=== PATIENT | female | born 1990 | race American Indian/Alaskan Native ===

== ENCOUNTER 2016-12-31 09:07 | Inpatient (IN) | payer MEDICAID ==
[2016-12-31] MEDS ORDERED: BRETHINE IVP PRN ×2 (09:49→11:14)
[2016-12-31] MEDS ORDERED: MINERAL OIL PO PRN ×2 (09:49→11:14)
[2016-12-31] MEDS ORDERED: BRETHINE SUB-Q PRN ×2 (09:49→11:14)
[2016-12-31] MEDS ORDERED: ePHEDrine SULFATE IV PRN ×2 (09:49→11:14)
[2016-12-31] MEDS ORDERED: PITOCin/NS 20 UNIT/1000ML DRIP 20 UNIT/1,000 ML BAG IV SCH (10:00)
[2016-12-31] MEDS ORDERED: PITOCin/NS 30 UNIT/500ML 30 UNIT/500 ML BAG IV SCH (10:00)
[2016-12-31 10:19] LABS: Hematocrit 29.6 % (30.3-42.9); Hemoglobin 9.1 gm/dl (10.1-14.3); Mean Corpuscular HGB Conc 31 % (30-34); Platelet Count 135 K/mm3 (140-440); Red Blood Count 4.25 M/mm3 (3.65-5.03); Red Cell Distribution Width 18.1 % (13.2-15.2); White Blood Count 16.3 K/mm3 (4.5-11.0)
[2016-12-31 10:20] LABS: Mean Corpuscular Hemoglobin 21 pg (28-32); Mean Corpuscular Volume 70 fl (79-97)
[2016-12-31] MEDS: LACTATED RINGERS 1,000 ML IV SCH ×3 (10:37→13:13)
[2016-12-31 10:59] LABS: Basophils % (Manual) 0 % (0.0-1.8); Blastocytes % (Manual) 0 %
[2016-12-31 11:00] LABS: Hypochromasia 2+
[2016-12-31 11:01] LABS: Anisocytosis 1+; Diff Status Complete; Large Platelets Few; Microcytosis 1+; Platelet Estimate Cons; Tear Drop Cells 1+
[2016-12-31 11:02] LABS: Polychromasia Few
--- NOTE | 2016-12-31 11:13 | History and Physical Report ---
History of Present Illness Date of examination: 12/31/16 Date of admission: 12/31/16 09:07 Chief complaint: Painful contractions with heavy VB History of present illness: 6-year-old 101 at 40 weeks presents with above complaints and issues, she is a drop-in patient with care at [facility]. Her history patient with onset of contractions and vaginal bleeding today and decided to come into the hospital. Per patient, her care has been unremarkable. On LDRP, bedside ultrasound shows fundal placenta with no sign of abruption. Initially 3 cm she is now 4 cm per RN exam. 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 denies: IV drug use - Obstetrical History : 3 Para: 2 Hx # Term Pregnancies: 1 Number of Pregnancies: 1 Number of Living Children: 1 Medications and Allergies Allergies Allergy/AdvReac Type Severity Reaction Status Date / Time No Known Allergies Allergy Unverified 12/31/16 09:42 Active Meds: Active Medications Lactated Ringer's (Lactated Ringers) 1,000 mls @ 125 mls/hr IV DIRECT REX Last Admin: 12/31/16 10:42 Dose: 125 mls/hr Oxytocin/Sodium Chloride (Pitocin/Ns 20 Unit/1000ml Drip) 20 unit in 1,000 mls @ 125 mls/hr IV DIRECT REX Oxytocin/Sodium Chloride (Pitocin/Ns 30 Unit/500ml) 30 unit in 500 mls @ 1 mls/ hr IV TITR REX; 1 MILLIUNITS/MIN PRN Reason: Protocol Mineral Oil (Mineral Oil) 30 ml PO QHS PRN PRN Reason: Constipation Review of Systems Constitutional: no fever, no chills, no sweats Eyes: no blurred vision, no diplopia, no pain Cardiovascular: no chest pain, no palpitations, no syncope, no lightheadedness, no shortness of breath, no dyspnea on exertion, no high blood pressure, no decreased exercise tolerance Respiratory: no hemoptysis, no shortness of breath, no dyspnea on exertion Gastrointestinal: abdominal pain, no nausea, no vomiting Genitourinary: vaginal bleeding, no vaginal discharge, no leakage of fluid - Vital Signs Vital signs: Vital Signs Pulse BP 117 H 118/76 12/31/16 09:47 12/31/16 09:47 Temp Pulse Resp BP Pulse Ox 117 H 118/76 12/31/16 09:47 12/31/16 09:47 - Physical Exam Abdomen: Positive: normal appearance, soft. Negative: distention, tenderness, guarding, rigidity Genitourinary (Female): Positive: normal external genitalia Uterus: Positive: enlarged (EFW ~ 3600). Negative: tender Adnexa: both: normal Extremities: Positive: normal - Obstetrical FHR: category 1 Cervical Dilatation: 4 Results Result Diagrams: 12/31/16 09:38 Abnormal lab results 12/31/16 Range/Units 09:38 WBC 16.3 H (4.5-11.0) K/mm3 Hgb 9.1 L (10.1-14.3) gm/dl Hct 29.6 L (30.3-42.9) % MCV 70 L (79-97) fl MCH 21 L (28-32) pg RDW 18.1 H (13.2-15.2) % Plt Count 135 L (140-440) K/mm3 Monocytes % (Manual) 12.0 H (0.0-7.3) % Nucleated RBC % 1.0 H (0.0-0.9) % Seg Neutrophils # Man 10.9 H (1.8-7.7) K/mm3 Monocytes # (Manual) 2.0 H (0.0-0.8) K/mm3 All other labs normal. Assessment and Plan A: 26 y/o at 40 wks in active labour -Cat 1 tracing P: -Admit -Routine labs and Coags -NPO -Expectant Mgt -Anticipate - Patient Problems (1) 40 weeks gestation of Current Visit: Yes Status: Acute (2) Active labor at term Current Visit: Yes Status: Acute
[2016-12-31] MEDS ORDERED: POLYCILLIN/NS 2 GM/100 ML 2 GM/100 ML BAG IV ONE (11:14)
[2016-12-31 11:15] LABS: HIV-1 Antigen p24 Non React (Non React); HIVR-1/2 Ab Non React (Non React)
[2016-12-31] MEDS ORDERED: NACL 0.9% 500 ML 500 ML IV NR (11:18)
[2016-12-31] MEDS ORDERED: PITOCin/NS 20 UNIT/1000ML DRIP 20 UNITS/1,000 ML BAG IV SCH (12:00)
[2016-12-31] MEDS ORDERED: LACTATED RINGERS 1,000 ML IV SCH (12:00)
[2016-12-31] MEDS ORDERED: NARCAN 2 MG/2 ML IV PRN (12:19)
--- NOTE | 2016-12-31 12:19 | Anesthesia Consultation ---
Anesthesia Consult and Med Hx Date of service: 12/31/16 - Airway Anesthetic Teeth Evaluation: Good ROM Head & Neck: Adequate Mental/Hyoid Distance: Adequate Mallampati Class: Class II Intubation Access Assessment: Probably Good - Pre-Operative Health Status ASA Pre-Surgery Classification: ASA2 Proposed Anesthetic Plan: Epidural, Spinal - Pulmonary Hx Asthma: No COPD: No Hx Pneumonia: No - Cardiovascular System Hx Hypertension: No - Central Nervous System Hx Seizures: No Hx Psychiatric Problems: No - Endocrine Hx Renal Disease: No Hx End Stage Renal Disease: No Hx Hypothyroidism: No Hx Hyperthyroidism: No - Hematic Hx Anemia: No Hx Sickle Cell Disease: No - Other Systems Hx Alcohol Use: No
[2016-12-31] MEDS ORDERED: fentaNYL-BUPIV 2 MCG/ML-0.125% 200 MCG/100 ML BAG EPIDURAL SCH (13:00)
[2016-12-31 13:22] LABS: Hematocrit 27.3 % (30.3-42.9); Hemoglobin 8.4 gm/dl (10.1-14.3); Mean Corpuscular HGB Conc 31 % (30-34); Platelet Count 108 K/mm3 (140-440); Red Cell Distribution Width 17.9 % (13.2-15.2); White Blood Count 15.4 K/mm3 (4.5-11.0)
[2016-12-31 13:23] LABS: Mean Corpuscular Hemoglobin 22 pg (28-32); Mean Corpuscular Volume 70 fl (79-97)
[2016-12-31 13:35] LABS: INR 1.05 (0.87-1.13)
[2016-12-31] MEDS ORDERED: POLYCILLIN/NS 1 GM/50 ML 1 GM/50 ML BAG IV SCH (14:00)
--- NOTE | 2016-12-31 14:13 | Progress Note ---
Assessment and Plan - Patient Problems (1) 40 weeks gestation of Current Visit: Yes Status: Acute (2) Active labor at term Current Visit: Yes Status: Acute Subjective - Subjective Date of service: 12/31/16 Patient reports: new complaints, vaginal bleeding (Mild show), movement normal, contractions, no loss of fluid Objective - Vital Signs Vital Signs: Vital Signs - 12hr 12/31/16 12/31/16 12/31/16 09:47 12:14 13:15 Pulse Rate 117 H 127 H Respiratory 18 Rate Blood Pressure 118/76 124/69 124/69 - Exam FHR: category 1 Cervical Dilatation: 8.5 station: -1 - Labs Labs: Abnormal Labs 12/31/16 12/31/16 12/31/16 09:38 09:38 13:07 WBC 16.3 H 15.4 H Hgb 9.1 L 8.4 L Hct 29.6 L 27.3 L MCV 70 L 70 L MCH 21 L 22 L RDW 18.1 H 17.9 H Plt Count 135 L 108 L Monocytes % (Manual) 12.0 H Nucleated RBC % 1.0 H Seg Neutrophils # Man 10.9 H Monocytes # (Manual) 2.0 H Fibrinogen Crossmatch See Detail 12/31/16 13:07 WBC Hgb Hct MCV MCH RDW Plt Count Monocytes % (Manual) Nucleated RBC % Seg Neutrophils # Man Monocytes # (Manual) Fibrinogen 762 H Crossmatch Laboratory Results - last 24 hr 12/31/16 12/31/16 12/31/16 09:38 09:38 09:38 WBC 16.3 H RBC 4.25 Hgb 9.1 L Hct 29.6 L MCV 70 L MCH 21 L MCHC 31 RDW 18.1 H Plt Count 135 L Add Manual Diff Complete Total Counted 100 Seg Neuts % (Manual) 67.0 Band Neutrophils % 5.0 Lymphocytes % (Manual) 15.0 Reactive Lymphs % (Man) 0 Monocytes % (Manual) 12.0 H Eosinophils % (Manual) 1.0 Basophils % (Manual) 0 Metamyelocytes % 0 Myelocytes % 0 Promyelocytes % 0 Blast Cells % 0 Nucleated RBC % 1.0 H Seg Neutrophils # Man 10.9 H Band Neutrophils # 0.8 Lymphocytes # (Manual) 2.4 Abs React Lymphs (Man) 0.0 Monocytes # (Manual) 2.0 H Eosinophils # (Manual) 0.2 Basophils # (Manual) 0.0 Metamyelocytes # 0.0 Myelocytes # 0.0 Promyelocytes # 0.0 Blast Cells # 0.0 WBC Morphology Not Reportable Hypersegmented Neuts Not Reportable Hyposegmented Neuts Not Reportable Hypogranular Neuts Not Reportable Smudge Cells Not Reportable Toxic Granulation Not Reportable Toxic Vacuolation Not Reportable Dohle Bodies Not Reportable Pelger-Huet Anomaly Not Reportable Jenifer Rods Not Reportable Platelet Estimate Cons Clumped Platelets Not Reportable Plt Clumps, EDTA Not Reportable Large Platelets Few Giant Platelets Not Reportable Platelet Satelliting Not Reportable Plt Morphology Comment Not Reportable RBC Morphology Not Reportable Dimorphic RBCs Not Reportable Polychromasia Few Hypochromasia 2+ Poikilocytosis Not Reportable Anisocytosis 1+ Microcytosis 1+ Macrocytosis Not Reportable Spherocytes Not Reportable Pappenheimer Bodies Not Reportable Sickle Cells Not Reportable Target Cells Not Reportable Tear Drop Cells 1+ Ovalocytes Not Reportable Helmet Cells Not Reportable Pearson-Kulm Bodies Not Reportable [place] Rings Not Reportable Peter Cells Not Reportable Bite Cells Not Reportable Crenated Cell Not Reportable Elliptocytes Not Reportable Acanthocytes (Spur) Not Reportable Rouleaux Not Reportable Hemoglobin C Crystals Not Reportable Schistocytes Not Reportable Malaria parasites Not Reportable [place] Bodies Not Reportable Hem Pathologist Commnt No PT INR APTT Fibrinogen RPR Hep Bs Antigen Non-reactive HIV 1&2 Antibody Rapid Non react HIV P24 Antigen Non react Rubella IgG Antibody Immune Blood Type Antibody Screen Crossmatch 12/31/16 12/31/16 12/31/16 09:38 09:38 13:07 WBC 15.4 H RBC 3.90 Hgb 8.4 L Hct 27.3 L MCV 70 L MCH 22 L MCHC 31 RDW 17.9 H Plt Count 108 L Add Manual Diff Total Counted Seg Neuts % (Manual) Band Neutrophils % Lymphocytes % (Manual) Reactive Lymphs % (Man) Monocytes % (Manual) Eosinophils % (Manual) Basophils % (Manual) Metamyelocytes % Myelocytes % Promyelocytes % Blast Cells % Nucleated RBC % Seg Neutrophils # Man Band Neutrophils # Lymphocytes # (Manual) Abs React Lymphs (Man) Monocytes # (Manual) Eosinophils # (Manual) Basophils # (Manual) Metamyelocytes # Myelocytes # Promyelocytes # Blast Cells # WBC Morphology Hypersegmented Neuts Hyposegmented Neuts Hypogranular Neuts Smudge Cells Toxic Granulation Toxic Vacuolation Dohle Bodies Pelger-Huet Anomaly Jenifer Rods Platelet Estimate Clumped Platelets Plt Clumps, EDTA Large Platelets Giant Platelets Platelet Satelliting Plt Morphology Comment RBC Morphology Dimorphic RBCs Polychromasia Hypochromasia Poikilocytosis Anisocytosis Microcytosis Macrocytosis Spherocytes Pappenheimer Bodies Sickle Cells Target Cells Tear Drop Cells Ovalocytes Helmet Cells Pearson-Kulm Bodies [place] Rings [place] Cells Bite Cells Crenated Cell Elliptocytes Acanthocytes (Spur) Rouleaux Hemoglobin C Crystals Schistocytes Malaria parasites [place] Bodies Hem Pathologist Commnt PT INR APTT Fibrinogen RPR Nonreactive Hep Bs Antigen HIV 1&2 Antibody Rapid HIV P24 Antigen Rubella IgG Antibody Blood Type O POSITIVE Antibody Screen Negative Crossmatch See Detail 12/31/16 13:07 WBC RBC Hgb Hct MCV MCH MCHC RDW Plt Count Add Manual Diff Total Counted Seg Neuts % (Manual) Band Neutrophils % Lymphocytes % (Manual) Reactive Lymphs % (Man) Monocytes % (Manual) Eosinophils % (Manual) Basophils % (Manual) Metamyelocytes % Myelocytes % Promyelocytes % Blast Cells % Nucleated RBC % Seg Neutrophils # Man Band Neutrophils # Lymphocytes # (Manual) Abs React Lymphs (Man) Monocytes # (Manual) Eosinophils # (Manual) Basophils # (Manual) Metamyelocytes # Myelocytes # Promyelocytes # Blast Cells # WBC Morphology Hypersegmented Neuts Hyposegmented Neuts Hypogranular Neuts Smudge Cells Toxic Granulation Toxic Vacuolation Dohle Bodies Pelger-Huet Anomaly Jenifer Rods Platelet Estimate Clumped Platelets Plt Clumps, EDTA Large Platelets Giant Platelets Platelet Satelliting Plt Morphology Comment RBC Morphology Dimorphic RBCs Polychromasia Hypochromasia Poikilocytosis Anisocytosis Microcytosis Macrocytosis Spherocytes Pappenheimer Bodies Sickle Cells Target Cells Tear Drop Cells Ovalocytes Helmet Cells Pearson-Kulm Bodies [place] Rings Peter Cells Bite Cells Crenated Cell Elliptocytes Acanthocytes (Spur) Rouleaux Hemoglobin C Crystals Schistocytes Malaria parasites [place] Bodies Hem Pathologist Commnt PT 13.6 INR 1.05 APTT 27.0 Fibrinogen 762 H RPR Hep Bs Antigen HIV 1&2 Antibody Rapid HIV P24 Antigen Rubella IgG Antibody Blood Type Antibody Screen Crossmatch
--- NOTE | 2016-12-31 14:24 | Ultrasound Report ---
OB LIMITED Technique: Transabdominal ultrasound with Doppler interrogation. Gestation: Single Position: Cephalic Placenta: Posterior Placental Grade: 2 Heart Rate: 142 BPM
[2016-12-31] MEDS ORDERED: HEMABATE IM ONE ×2 (18:18→19:30)
[2016-12-31 18:22] LABS: Urine Drugs of Abuse Note Disclamer
--- NOTE | 2016-12-31 18:33 | Procedure Note ---
OB Delivery Note - Delivery Date of Delivery: 12/31/16 Surgeon: ANA PAGAN Estimated blood loss: other (700 cc) - Vaginal Delivery presentation: vertex Delivery position: OA Intrapartum events: meconium, bleeding site-undetermine, hemorrhage Delivery induction: none Delivery monitor: external FHT, external uterine Route of delivery: Delivery placenta: spontaneous, adherent Delivery cord: 3 umbilical vessels Episiotomy: none Delivery laceration: none Anesthesia: epidural - A at 1 minute: 8 at 5 minutes: 9 Infant Gender: Male (Del @ 17:58, weight is 7#6 or 3354 g)
[2016-12-31 18:34] LABS: Bilirubin,Urine NEG (Negative); Blood,Urine MOD (Negative); Ketones,Urine NEG (Negative); Leukocyte Esterase,Urine TR (Negative); Mucus,Urine 3+ /HPF; Nitrite,Urine NEG (Negative); Urobilinogen,Urine < 2.0 mg/dL (<2.0)
[2016-12-31] MEDS ORDERED: BENADRYL PO PRN (18:35)
[2016-12-31] MEDS ORDERED: MILK OF MAGNESIA PO PRN (18:35)
[2016-12-31] MEDS ORDERED: TUCKS PAD TP PRN (18:35)
[2016-12-31] MEDS ORDERED: TYLENOL PO PRN (18:35)
[2016-12-31] MEDS ORDERED: DULCOLAX PR PRN (18:35)
[2016-12-31] MEDS ORDERED: ZOFRAN IV PRN (18:35)
[2016-12-31] MEDS ORDERED: PHENERGAN PR PRN (18:35)
[2016-12-31] MEDS ORDERED: NORCO 5/325 PO PRN (18:35)
[2016-12-31] MEDS ORDERED: DERMOPLAST TP PRN (18:35)
[2016-12-31] MEDS ORDERED: LANSINOH TP PRN (18:35)
[2016-12-31] MEDS ORDERED: PHENERGAN PO PRN (18:35)
[2016-12-31] MEDS: MOTRIN PO SCH (18:54)
[2016-12-31] MEDS ORDERED: SODIUM CHLORIDE FLUSH SYRINGE 10 ML IV SCH (19:00)
[2016-12-31] MEDS ORDERED: SENOKOT S PO SCH (22:00)
[2016-12-31] MEDS: FEOSOL PO SCH (22:55)
[2016-12-31] MEDS: COLACE PO SCH (22:55)
[2017-01-01] MEDS: MOTRIN PO SCH ×5 (00:11→23:53)
[2017-01-01] MEDS ORDERED: BOOSTRIX IM ONE (06:00)
[2017-01-01 07:17] LABS: Hematocrit 20.7 % (30.3-42.9); Hemoglobin 6.4 gm/dl (10.1-14.3)
[2017-01-01] MEDS ORDERED: PRENATAL VITAMIN PO SCH (10:00)
--- NOTE | 2017-01-01 10:07 | Ultrasound Report ---
OB LIMITED: TECHNIQUE: Transabdominal ultrasound with Doppler interrogation. Gestation: [email or web address] Position: cephalic Placenta: posterior Placental Grade: II Heart Rate: 142 BPM
[2017-01-01] MEDS: FEOSOL PO SCH ×2 (10:20→21:52)
[2017-01-01] MEDS: COLACE PO SCH ×2 (10:20→21:52)
[2017-01-01] MEDS ORDERED: FLUARIX QUAD 2016-2017(36 MOS+) IM ONE (12:00)
[2017-01-01] MEDS ORDERED: INFED IM ONE (12:00)
--- NOTE | 2017-01-01 12:05 | Progress Note ---
Assessment and Plan - Patient Problems (1) (normal spontaneous vaginal delivery) Onset Date: 01/01/17 Current Visit: Yes Status: Resolved Plan to address problem: A: S/P - PPD #1 Doing well P: May go home tomorrow Subjective - Subjective Date of service: 01/01/17 Principal diagnosis: s/p - PPD #1 Interval history: Pt is feeling well without complaints. Bleeding improved. Denies dizziness or SOB. Patient reports: appetite normal, voiding normally, pain well controlled, flatus , ambulating normally [place]: doing well Objective - Vital Signs Latest vital signs: Vital Signs Temp Pulse Pulse Resp BP BP 01/01/17 08:45 97.9 F 90 18 110/64 12/31/16 20:19 97.7 F 78 18 126/74 12/31/16 20:17 78 126/74 12/31/16 20:16 80 129/92 12/31/16 20:01 94 H 127/89 12/31/16 20:00 92 H 18 116/79 12/31/16 19:46 92 H 116/79 12/31/16 19:45 96 H 133/89 12/31/16 19:16 103 H 136/95 12/31/16 19:15 103 H 18 136/95 12/31/16 19:01 107 H 132/89 12/31/16 19:00 107 H 18 132/89 12/31/16 18:50 95.8 F L 114 H 18 132/86 12/31/16 18:49 114 H 132/86 12/31/16 18:31 118 H 157/97 12/31/16 18:30 118 H 18 157/97 12/31/16 16:15 82 116/72 12/31/16 16:14 97.1 F L 82 18 116/72 12/31/16 13:15 18 124/69 12/31/16 12:14 127 H 124/69 Intake and Output 12/31/16 01/01/17 01/01/17 22:59 06:59 14:59 Intake Total 1320 360 Output Total 400 400 Balance 920 -400 360 Intake: IV 1320 Lactated Ringers 1,000 ml 1320 @ 125 mls/hr IV DIRECT REX Rx#:[id number] Oral 240 Intake, Free Water 120 Output: Urine 400 400 Indwelling Catheter 400 Void 400 Other: Total, Intake Amount 240 Total, Output Amount 400 400 # Voids Void 1 Estimated Blood Loss 700 - Exam Breasts: Present: deferred Cardiovascular: Present: Regular rate Lungs: Present: Clear to auscultation Abdomen: Present: normal appearance, soft Uterus: Present: normal, firm, fundal height below umbilicus Extremities: Present: normal - Labs Labs: Abnormal lab results 12/31/16 12/31/16 12/31/16 Range/Units 09:38 13:07 13:07 WBC 15.4 H (4.5-11.0) K/mm3 Hgb 8.4 L (10.1-14.3) gm/dl Hct 27.3 L (30.3-42.9) % MCV 70 L (79-97) fl MCH 22 L (28-32) pg RDW 17.9 H (13.2-15.2) % Plt Count 108 L (140-440) K/mm3 Fibrinogen 762 H (211-480) mg/dl Urine WBC (Auto) (0.0-6.0) /HPF Crossmatch See Detail 12/31/16 01/01/17 Range/Units 17:47 06:35 WBC (4.5-11.0) K/mm3 Hgb 6.4 L (10.1-14.3) gm/dl Hct 20.7 L D (30.3-42.9) % MCV (79-97) fl MCH (28-32) pg RDW (13.2-15.2) % Plt Count (140-440) K/mm3 Fibrinogen (211-480) mg/dl Urine WBC (Auto) 11.0 H (0.0-6.0) /HPF Crossmatch Laboratory Tests 12/31/16 12/31/16 12/31/16 09:38 09:38 09:38 WBC 16.3 H RBC 4.25 Hgb 9.1 L Hct 29.6 L MCV 70 L MCH 21 L MCHC 31 RDW 18.1 H Plt Count 135 L Add Manual Diff Complete Total Counted 100 Seg Neuts % (Manual) 67.0 Band Neutrophils % 5.0 Lymphocytes % (Manual) 15.0 Reactive Lymphs % (Man) 0 Monocytes % (Manual) 12.0 H Eosinophils % (Manual) 1.0 Basophils % (Manual) 0 Metamyelocytes % 0 Myelocytes % 0 Promyelocytes % 0 Blast Cells % 0 Nucleated RBC % 1.0 H Seg Neutrophils # Man 10.9 H Band Neutrophils # 0.8 Lymphocytes # (Manual) 2.4 Abs React Lymphs (Man) 0.0 Monocytes # (Manual) 2.0 H Eosinophils # (Manual) 0.2 Basophils # (Manual) 0.0 Metamyelocytes # 0.0 Myelocytes # 0.0 Promyelocytes # 0.0 Blast Cells # 0.0 WBC Morphology Not Reportable Hypersegmented Neuts Not Reportable Hyposegmented Neuts Not Reportable Hypogranular Neuts Not Reportable Smudge Cells Not Reportable Toxic Granulation Not Reportable Toxic Vacuolation Not Reportable Dohle Bodies Not Reportable Pelger-Huet Anomaly Not Reportable Jeinfer Rods Not Reportable Platelet Estimate Cons Clumped Platelets Not Reportable Plt Clumps, EDTA Not Reportable Large Platelets Few Giant Platelets Not Reportable Platelet Satelliting Not Reportable Plt Morphology Comment Not Reportable RBC Morphology Not Reportable Dimorphic RBCs Not Reportable Polychromasia Few Hypochromasia 2+ Poikilocytosis Not Reportable Anisocytosis 1+ Microcytosis 1+ Macrocytosis Not Reportable Spherocytes Not Reportable Pappenheimer Bodies Not Reportable Sickle Cells Not Reportable Target Cells Not Reportable Tear Drop Cells 1+ Ovalocytes Not Reportable Helmet Cells Not Reportable Pearson-[place] Bodies Not Reportable [place] Rings Not Reportable [place] Cells Not Reportable Bite Cells Not Reportable Crenated Cell Not Reportable Elliptocytes Not Reportable Acanthocytes (Spur) Not Reportable Rouleaux Not Reportable Hemoglobin C Crystals Not Reportable Schistocytes Not Reportable Malaria parasites Not Reportable [place] Bodies Not Reportable Hem Pathologist Commnt No PT INR APTT Fibrinogen Urine Color Urine Turbidity Urine pH Ur Specific Boody Urine Protein Urine Glucose (UA) Urine Ketones Urine Blood Urine Nitrite Urine Bilirubin Urine Urobilinogen Ur Leukocyte Esterase Urine WBC (Auto) Urine RBC (Auto) U Epithel Cells (Auto) Urine Mucus Urine Opiates Screen Urine Methadone Screen Ur Barbiturates Screen Ur Phencyclidine Scrn Ur Amphetamines Screen U Benzodiazepines Scrn Urine Cocaine Screen U Marijuana (THC) Screen Drugs of Abuse Note RPR Hep Bs Antigen Non-reactive HIV 1&2 Antibody Rapid Non react HIV P24 Antigen Non react Rubella IgG Antibody Immune Blood Type Antibody Screen Crossmatch 12/31/16 12/31/16 12/31/16 09:38 09:38 13:07 WBC 15.4 H RBC 3.90 Hgb 8.4 L Hct 27.3 L MCV 70 L MCH 22 L MCHC 31 RDW 17.9 H Plt Count 108 L Add Manual Diff Total Counted Seg Neuts % (Manual) Band Neutrophils % Lymphocytes % (Manual) Reactive Lymphs % (Man) Monocytes % (Manual) Eosinophils % (Manual) Basophils % (Manual) Metamyelocytes % Myelocytes % Promyelocytes % Blast Cells % Nucleated RBC % Seg Neutrophils # Man Band Neutrophils # Lymphocytes # (Manual) Abs React Lymphs (Man) Monocytes # (Manual) Eosinophils # (Manual) Basophils # (Manual) Metamyelocytes # Myelocytes # Promyelocytes # Blast Cells # WBC Morphology Hypersegmented Neuts Hyposegmented Neuts Hypogranular Neuts Smudge Cells Toxic Granulation Toxic Vacuolation Dohle Bodies Pelger-Huet Anomaly Jenifer Rods Platelet Estimate Clumped Platelets Plt Clumps, EDTA Large Platelets Giant Platelets Platelet Satelliting Plt Morphology Comment RBC Morphology Dimorphic RBCs Polychromasia Hypochromasia Poikilocytosis Anisocytosis Microcytosis Macrocytosis Spherocytes Pappenheimer Bodies Sickle Cells Target Cells Tear Drop Cells Ovalocytes Helmet Cells Pearson-[place] Bodies [place] Rings Peter Cells Bite Cells Crenated Cell Elliptocytes Acanthocytes (Spur) Rouleaux Hemoglobin C Crystals Schistocytes Malaria parasites [place] Bodies Hem Pathologist Commnt PT INR APTT Fibrinogen Urine Color Urine Turbidity Urine pH Ur Specific Boody Urine Protein Urine Glucose (UA) Urine Ketones Urine Blood Urine Nitrite Urine Bilirubin Urine Urobilinogen Ur Leukocyte Esterase Urine WBC (Auto) Urine RBC (Auto) U Epithel Cells (Auto) Urine Mucus Urine Opiates Screen Urine Methadone Screen Ur Barbiturates Screen Ur Phencyclidine Scrn Ur Amphetamines Screen U Benzodiazepines Scrn Urine Cocaine Screen U Marijuana (THC) Screen Drugs of Abuse Note RPR Nonreactive Hep Bs Antigen HIV 1&2 Antibody Rapid HIV P24 Antigen Rubella IgG Antibody Blood Type O POSITIVE Antibody Screen Negative Crossmatch See Detail 12/31/16 12/31/16 12/31/16 13:07 17:47 17:47 WBC RBC Hgb Hct MCV MCH MCHC RDW Plt Count Add Manual Diff Total Counted Seg Neuts % (Manual) Band Neutrophils % Lymphocytes % (Manual) Reactive Lymphs % (Man) Monocytes % (Manual) Eosinophils % (Manual) Basophils % (Manual) Metamyelocytes % Myelocytes % Promyelocytes % Blast Cells % Nucleated RBC % Seg Neutrophils # Man Band Neutrophils # Lymphocytes # (Manual) Abs React Lymphs (Man) Monocytes # (Manual) Eosinophils # (Manual) Basophils # (Manual) Metamyelocytes # Myelocytes # Promyelocytes # Blast Cells # WBC Morphology Hypersegmented Neuts Hyposegmented Neuts Hypogranular Neuts Smudge Cells Toxic Granulation Toxic Vacuolation Dohle Bodies Pelger-Huet Anomaly Jenifer Rods Platelet Estimate Clumped Platelets Plt Clumps, EDTA Large Platelets Giant Platelets Platelet Satelliting Plt Morphology Comment RBC Morphology Dimorphic RBCs Polychromasia Hypochromasia Poikilocytosis Anisocytosis Microcytosis Macrocytosis Spherocytes Pappenheimer Bodies Sickle Cells Target Cells Tear Drop Cells Ovalocytes Helmet Cells Pearson-[place] Bodies [place] Rings [place] Cells Bite Cells Crenated Cell Elliptocytes Acanthocytes (Spur) Rouleaux Hemoglobin C Crystals Schistocytes Malaria parasites Clinton Bodies Hem Pathologist Commnt PT 13.6 INR 1.05 APTT 27.0 Fibrinogen 762 H Urine Color Yellow Urine Turbidity Clear Urine pH 7.0 Ur Specific Boody 1.017 Urine Protein 30 mg/dl Urine Glucose (UA) Neg Urine Ketones Neg Urine Blood Mod Urine Nitrite Neg Urine Bilirubin Neg Urine Urobilinogen < 2.0 Ur Leukocyte Esterase Tr Urine WBC (Auto) 11.0 H Urine RBC (Auto) 26.0 U Epithel Cells (Auto) 2.0 Urine Mucus 3+ Urine Opiates Screen Presumptive negative Urine Methadone Screen Presumptive negative Ur Barbiturates Screen Presumptive negative Ur Phencyclidine Scrn Presumptive negative Ur Amphetamines Screen Presumptive negative U Benzodiazepines Scrn Presumptive negative Urine Cocaine Screen Presumptive negative U Marijuana (THC) Screen Presumptive negative Drugs of Abuse Note Disclamer RPR Hep Bs Antigen HIV 1&2 Antibody Rapid HIV P24 Antigen Rubella IgG Antibody Blood Type Antibody Screen Crossmatch 01/01/17 06:35 WBC RBC Hgb 6.4 L Hct 20.7 L D MCV MCH MCHC RDW Plt Count Add Manual Diff Total Counted Seg Neuts % (Manual) Band Neutrophils % Lymphocytes % (Manual) Reactive Lymphs % (Man) Monocytes % (Manual) Eosinophils % (Manual) Basophils % (Manual) Metamyelocytes % Myelocytes % Promyelocytes % Blast Cells % Nucleated RBC % Seg Neutrophils # Man Band Neutrophils # Lymphocytes # (Manual) Abs React Lymphs (Man) Monocytes # (Manual) Eosinophils # (Manual) Basophils # (Manual) Metamyelocytes # Myelocytes # Promyelocytes # Blast Cells # WBC Morphology Hypersegmented Neuts Hyposegmented Neuts Hypogranular Neuts Smudge Cells Toxic Granulation Toxic Vacuolation Dohle Bodies Pelger-Huet Anomaly Jenifer Rods Platelet Estimate Clumped Platelets Plt Clumps, EDTA Large Platelets Giant Platelets Platelet Satelliting Plt Morphology Comment RBC Morphology Dimorphic RBCs Polychromasia Hypochromasia Poikilocytosis Anisocytosis Microcytosis Macrocytosis Spherocytes Pappenheimer Bodies Sickle Cells Target Cells Tear Drop Cells Ovalocytes Helmet Cells [place] Bodies [place] Rings [place] Cells Bite Cells Crenated Cell Elliptocytes Acanthocytes (Spur) Rouleaux Hemoglobin C Crystals Schistocytes Malaria parasites [place] Bodies Hem Pathologist Commnt PT INR APTT Fibrinogen Urine Color Urine Turbidity Urine pH Ur Specific [place]y Urine Protein Urine Glucose (UA) Urine Ketones Urine Blood Urine Nitrite Urine Bilirubin Urine Urobilinogen Ur Leukocyte Esterase Urine WBC (Auto) Urine RBC (Auto) U Epithel Cells (Auto) Urine Mucus Urine Opiates Screen Urine Methadone Screen Ur Barbiturates Screen Ur Phencyclidine Scrn Ur Amphetamines Screen U Benzodiazepines Scrn Urine Cocaine Screen U Marijuana (THC) Screen Drugs of Abuse Note RPR Hep Bs Antigen HIV 1&2 Antibody Rapid HIV P24 Antigen Rubella IgG Antibody Blood Type Antibody Screen Crossmatch
--- NOTE | 2017-01-01 14:01 | Discharge Summary ---
Providers - Providers Date of Admission: 12/31/16 09:07 Date of discharge: 01/02/17 Attending physician: SHERLYN BROWNE MD Primary care physician: SHERLYN BROWNE MD Hospitalization Reason for admission: active labor, IUP at term Delivery: Episiotomy: none Laceration: none Other procedures: none complications: none Discharge diagnosis: IUP at term delivered baby: male Hospital course: Unremarkable except hemorrhage. Condition at discharge: Good Disposition: DISCHARGED TO HOME OR SELFCARE - Discharge Diagnoses (1) (normal spontaneous vaginal delivery) Status: Resolved Plan - Discharge Medications Prescriptions: HYDROcodone/APAP 5-325 [[place] 5/325] 1 each PO Q6HR PRN #20 tablet PRN Reason: Pain Ibuprofen [Motrin 600 MG tab] 600 mg PO Q8H PRN #30 tablet PRN Reason: Pain Multivitamin with Iron [Multivitamins with Iron] 1 each PO DAILY #30 tablet - Provider Discharge Summary Activity: routine, no sex for 6 weeks, no heavy lifting 4 weeks, no strenuous exercise Diet: routine Instructions: routine Additional instructions: [] Smoking cessation referral if applicable(refer to patient education folder for contact #) [] Refer to [facility] Booklet Call your doctor immediately for: * Fever > 100.5 * Heavy vaginal bleeding ( >1 pad per hour) * Severe persistent headache * Shortness of breath * Reddened, hot, painful area to leg or breast * Drainage or odor from incision. * Keep incision clean and dry at all times and follow doctor's instructions regarding bathing/showering - Follow up plan Follow up: SHERLYN NAVA MD [Primary Care Provider] - 6 Weeks
--- NOTE | 2017-01-01 14:09 | Progress Note ---
Subjective Date of service: 01/01/17 Principal diagnosis: s/p - PPD #1 Interval history: 1st day after normal vaginal delivery Patient is in the bed, comfortable. Pain is well under control. Ambulated normally. No residual neurological deficit. No anesthesia complications Objective - Constitutional Vitals: Vital Signs - 12hr 01/01/17 08:45 Temperature 97.9 F Pulse Rate [ 90 From Monitor] Respiratory 18 Rate Blood Pressure 110/64 [Left Arm] - Labs CBC & Chem 7: 01/01/17 06:35 Labs: Abnormal lab results 12/31/16 12/31/16 01/01/17 Range/Units 09:38 17:47 06:35 Hgb 6.4 L (10.1-14.3) gm/dl Hct 20.7 L D (30.3-42.9) % Urine WBC (Auto) 11.0 H (0.0-6.0) /HPF Crossmatch See Detail
[2017-01-01] MEDS ORDERED: M-M-R II VACCINE SUB-Q ONE (18:35)
[2017-01-02 14:26] VITALS: BP 114/68
[2017-01-02] MEDS ORDERED: FLUARIX QUAD 2016-2017(36 MOS+) IM ONE (18:00)
== END 2017-01-02 15:00 | disposition home or self-care (01) | DRG 774 ==
LOC: EDBD 09:07 → LD 09:07 → OB 20:45
PROVIDERS: ADMIT Obstetrics & Gynecology; ATTEND Obstetrics & Gynecology
PROC: 10E0XZZ Delivery of Products of Conception, External Approach (ICD-10-PCS; principal; 2016-12-31)
PROC: 00HU33Z Insertion of Infusion Device into Spinal Canal, Percutaneous Approach (ICD-10-PCS; 2016-12-31)
PROC: 3E0R3CZ (ICD-10-PCS; 2016-12-31)
DX: O67.9 Intrapartum hemorrhage, unspecified (principal); O72.1 Other immediate postpartum hemorrhage; O77.0 Labor and delivery complicated by meconium in amniotic fluid; O99.334 Smoking (tobacco) complicating childbirth; Z37.0 Single live birth; Z3A.40 40 weeks gestation of pregnancy
CPT/HCPCS: 36415; 76815; 80307; 81001; 85007; 85014; 85018; 85025; 85027; 85384; 85610; 85730; 86592; 86706; 86762; 86850; 86900; 86901; 86920; 87806; 88307; 90471; 90686; 90715; J0290; J1750; J2405; J2590; J7120; Q0169